=== PATIENT | male | born 1955 | race Caucasian/White ===

== ENCOUNTER 2017-05-19 17:23 | Emergency (ER) | payer OTHER ==
[~2017-05-19] VITALS: Ht 180.3 cm; Wt 83.9 kg
[2017-05-19 17:27] VITALS: BP_SYST 128
[2017-05-19 19:50] LABS: EOSINOPHILS % (AUTO) 0.1 % (0.0-4.0); LYMPHOCYTES # (AUTO) 0.8 K/uL (1.0-5.5)
[2017-05-19 19:55] LABS: LYMPHOCYTES % (AUTO) 9.3 % (20.5-51.5)
[2017-05-19 19:59] LABS: BASOPHILS # (AUTO) 0.1 K/uL (0.0-0.2); BASOPHILS % (AUTO) 1.3 % (0.0-2.0); HEMATOCRIT 43.8 % (36-54); MEAN CORPUSCULAR HEMOGLOBIN 27 pg (27-31); MEAN CORPUSCULAR HGB CONC 32 % (32-36); MEAN CORPUSCULAR VOLUME 86 fL (79.0-98.0); MONOCYTES # (AUTO) 0.8 K/uL (0.0-1.0); MONOCYTES % (AUTO) 9.4 % (1.7-9.3); NEUTROPHILS # (AUTO) 7.3 K/uL (1.8-7.7); NEUTROPHILS % (AUTO) 79.9 % (40.0-70.0); PLATELET COUNT (AUTO) 295 K/uL (130-430); RED BLOOD CELL COUNT(AUTO) 5.12 MIL/uL (4.2-6.2); RED CELL DISTRIBUTION WIDTH 13.2 % (9.0-15.0)
[2017-05-19 20:00] LABS: CALCIUM 9.4 mg/dL (8.4-11.0); CREATININE 1.46 mg/dL (0.55-1.30)
[2017-05-19 20:06] LABS: ALBUMIN 4.3 g/dL (3.4-4.8); TOTAL BILIRUBIN 0.4 mg/dL (0.0-1.0)
[2017-05-19 20:51] VITALS: BP_SYST 128
== END 2017-05-19 20:51 | disposition home or self-care (01) ==
LOC: SED 17:23
DX: Z00.00 Encounter for general adult medical examination without abnormal findings (principal); R40.4 Transient alteration of awareness
CPT/HCPCS: 36415; 80053; 80164-TC; 85025; 99284

== ENCOUNTER 2018-07-27 11:34 | Emergency (ER) | payer OTHER ==
[~2018-07-27] VITALS: Ht 180.3 cm; Wt 86.2 kg
[2018-07-27 11:34] VITALS: BP_SYST 127
--- NOTE | 2018-07-27 11:34 | NUR ---
patient arrived AOx4 from home with c/o SI thinking. patient states he has had SI and an unsuccessful suicide in the past. patient was last evaluated for SI thinking for weeks ago. patient states his 5 months ago from a heart attack, has no family, no friends and believes his life is over. patient has an suicide plan. patient plans to use scissors he has in his gym bag. patient stopped taking all therapeutic medication for major depression and bipolar disorder. no other complaint or injury at this time.
--- NOTE | 2018-07-27 11:34 | NUR ---
PT STATES HE IS NOW HOMELESS AFTER PASSING AWAY 6 MONTHS AGO, PT STATES HE HAS BEEN TRAVELING BETWEEN [place] AND [place], CAN NOT DECIDE WHERE TO MAKE HIS HOME. HAS ONE DAUGHTER AND ONE BROTHER, BOTH NO LONGER SPEAK WITH HIM. PT STATES HE IS SUICIDAL, HE STATES "THIS TIME I WILL SUCCEED". PT STATES HE IS A PATIENT OF DR ZUÑIGA AND HAS BEEN TO [facility] MANY TIMES.
--- NOTE | 2018-07-27 11:35 | NUR ---
ER at bedside examining patient.
[2018-07-27] MEDS ORDERED: QUET400T PO (11:58)
[2018-07-27] MEDS ORDERED: CYM30 PO (11:58)
[2018-07-27] MEDS ORDERED: TAMS-11 PO (12:01)
[2018-07-27] MEDS ORDERED: TEMA15CA5 PO (12:02)
[2018-07-27 12:19] LABS: BASOPHILS % (AUTO) 0.9 % (0.0-2.0); EOSINOPHILS # (AUTO) 0.1 K/uL (0.0-0.4); EOSINOPHILS % (AUTO) 2.7 % (0.0-4.0); HEMATOCRIT 42.5 % (36-54); HEMOGLOBIN 13.6 g/dL (14.0-18.0); LYMPHOCYTES # (AUTO) 1.4 K/uL (1.0-5.5); LYMPHOCYTES % (AUTO) 42.2 % (20.5-51.5); MEAN CORPUSCULAR HEMOGLOBIN 27 pg (27-31); MEAN CORPUSCULAR HGB CONC 32 % (32-36); MEAN CORPUSCULAR VOLUME 85 fL (79.0-98.0); MONOCYTES # (AUTO) 0.3 K/uL (0.0-1.0); MONOCYTES % (AUTO) 10.9 % (1.7-9.3); NEUTROPHILS # (AUTO) 1.3 K/uL (1.8-7.7); NEUTROPHILS % (AUTO) 43.3 % (40.0-70.0); PLATELET COUNT (AUTO) 183 K/uL (130-430); RED BLOOD CELL COUNT(AUTO) 5.01 MIL/uL (4.2-6.2); RED CELL DISTRIBUTION WIDTH 16.5 % (9.0-15.0); WHITE BLOOD COUNT (AUTO) 3.1 K/uL (4.8-10.8)
[2018-07-27 12:33] LABS: ANION GAP 10 (5-15); CALCIUM 8.8 mg/dL (8.4-11.0); CHLORIDE 104 mmol/L (98-107); CREATININE 1.15 mg/dL (0.55-1.30); GLUCOSE 109 mg/dL (70-99); POTASSIUM 4.2 mmol/L (3.5-5.1); SODIUM SERUM 142 mmol/L (136-145); UREA NITROGEN, BLOOD 17 mg/dL (8-21)
--- NOTE | 2018-07-27 12:33 | NUR ---
pt laying in bed, no signs of acute distress. Will continue to monitor
[2018-07-27 12:38] LABS: GFR AFRICAN AMERICAN 82 mL/min (>90)
[2018-07-27 12:46] LABS: ALANINE AMINOTRANSFERASE 32 U/L (12-78); ALBUMIN 3.4 g/dL (3.4-4.8); ASPARTATE AMINOTRANSFERASE 28 U/L (10-37); TOTAL BILIRUBIN 0.3 mg/dL (0.0-1.0)
--- NOTE | 2018-07-27 12:46 | NUR ---
pt laying in bed, no signs of acute distress. will continue to monitor.
[2018-07-27 12:50] LABS: ACETAMINOPHEN < 1 ug/mL (1-30); ALCOHOL, BLOOD < 3 mg/dL (<10)
--- NOTE | 2018-07-27 12:59 | NUR ---
pt laying in bed, no signs of acute distress. will continue to monitor.
--- NOTE | 2018-07-27 13:15 | NUR ---
pt laying in bed, no signs of acute distress. will continue to monitor
[2018-07-27 13:23] LABS: BILIRUBIN,URINE NEGATIVE (NEGATIVE); BLOOD, URINE NEGATIVE (NEGATIVE); CLARITY/URINE CLEAR (CLEAR); COLOR,URINE YELLOW (YELLOW); GLUCOSE,URINE NEGATIVE (NEGATIVE); KETONES,URINE TRACE (NEGATIVE); LEUKOCYTE ESTERASE ,URINE NEGATIVE (NEGATIVE); NITRITE, URINE NEGATIVE (NEGATIVE); PH,URINE 6.5 (5.0-8.0); PROTEIN URINE NEGATIVE (NEGATIVE); UROBILINOGEN,URINE 0.2 (0.2-1.0)
--- NOTE | 2018-07-27 13:28 | NUR ---
pt laying in bed, no signs of acute distress. will continue to monitor
--- NOTE | 2018-07-27 13:45 | NUR ---
pt laying in bed, no signs of acute distress. will continue to monitor
[2018-07-27 13:57] LABS: BENZODIAZEPINE, URINE POSITIVE (NEG <=150)
[2018-07-27 13:58] LABS: BARBITURATE, URINE NEGATIVE (NEG <=200); CANNABINOID, URINE NEGATIVE (NEG <=50); COCAINE, URINE NEGATIVE (NEG <=150); METHAMPHETAMINES SCREEN,URINE NEGATIVE (NEG <=500); OPIATE, URINE NEGATIVE (NEG <=100); PHENCYCLIDINE SCREEN,URINE NEGATIVE (NEG <=25); UR TRICYCLIC ANTIDEPRESSANTS POSITIVE (NEG <=300); URINE AMPHETAMINE NEGATIVE (NEG <=500); URINE METHADONE NEGATIVE (NEG <=200); URINE OXYCODONE SCREEN NEGATIVE (NEG <=100); URINE PROPOXYPHENE SCREEN NEGATIVE (NEG <=300)
--- NOTE | 2018-07-27 13:59 | NUR ---
pt laying in bed, no signs of acute distress. will continue to monitor
--- NOTE | 2018-07-27 14:00 | NUR ---
ER at bedside examining patient.
--- NOTE | 2018-07-27 14:12 | NUR ---
coffee given to pt at this time, no signs of distress.
--- NOTE | 2018-07-27 14:28 | NUR ---
pt laying in bed, no signs of acute distress. will continue to monitor.
--- NOTE | 2018-07-27 14:45 | NUR ---
pt laying in bed, no signs of acute distress. will continue to monitor
--- NOTE | 2018-07-27 15:00 | NUR ---
pt laying in bed, no signs of acute distress. will continue to monitor
--- NOTE | 2018-07-27 15:30 | NUR ---
pt laying in bed, no signs of acute distress. will continue to monitor
--- NOTE | 2018-07-27 15:45 | NUR ---
pt laying in bed, no signs of acute distress. will continue to monitor
--- NOTE | 2018-07-27 16:00 | NUR ---
safety tray provided. patient given a burger/fries. patient tolerating current diet.
--- NOTE | 2018-07-27 16:00 | NUR ---
pt laying in bed, no signs of acute distress. will continue to monitor
--- NOTE | 2018-07-27 16:15 | NUR ---
pt eating at this moment, no signs of distress. will continue to monitor
--- NOTE | 2018-07-27 16:30 | NUR ---
pt siting bed, no signs of acute distress. will continue to monitor
--- NOTE | 2018-07-27 16:45 | NUR ---
pt siting bed, no signs of acute distress. will continue to monitor
--- NOTE | 2018-07-27 17:03 | NUR ---
pt siting bed, no signs of acute distress. will continue to monitor
--- NOTE | 2018-07-27 17:15 | NUR ---
pt siting bed, no signs of acute distress. will continue to monitor
--- NOTE | 2018-07-27 18:15 | NUR ---
safety tray provided.
--- NOTE | 2018-07-27 18:16 | NUR ---
patient was eating and he is laying in the bed.
--- NOTE | 2018-07-27 18:32 | NUR ---
patient is laying in bed
--- NOTE | 2018-07-27 18:46 | NUR ---
patients is laying down
--- NOTE | 2018-07-27 18:56 | NUR ---
patient is laying down
--- NOTE | 2018-07-27 19:07 | NUR ---
patient is laying down about to go to sleep
--- NOTE | 2018-07-27 19:21 | NUR ---
Taking over care from dayshift. Pt v/s stable no s/s of acute distress. Resting on gurney, comfortable, with rails up. Sitter bedside. Awaiting placement
--- NOTE | 2018-07-27 19:30 | NUR ---
pt is resting in bed. no signs of distress. will continue to monitor.
--- NOTE | 2018-07-27 19:45 | NUR ---
pt is laying in bed. no signs of distress. will continue to monitor.
--- NOTE | 2018-07-27 20:00 | NUR ---
pt is sitting up in bed. no signs of distress. will continue to monitor.
--- NOTE | 2018-07-27 20:15 | NUR ---
pt is laying in bed. no signs of distress. will continue to monitor.
--- NOTE | 2018-07-27 20:30 | NUR ---
pt is laying in bed. no signs of distress. will continue to monitor.
--- NOTE | 2018-07-27 20:45 | NUR ---
pt is laying in bed. no signs of distress. will continue to monitor
--- NOTE | 2018-07-27 20:50 | NUR ---
Spoke with Dr. Randolph's regarding pt.'s status. Pt will be accepted to [facility] pending bed availability.
--- NOTE | 2018-07-27 20:55 | NUR ---
Dr. Randolph.'s calls to inform that [facility] has a bed and pt has been accepted. Pt report to be called to [phone].
--- NOTE | 2018-07-27 21:00 | NUR ---
pt is laying in bed. no signs of distress. will continue to monitor
--- NOTE | 2018-07-27 21:00 | NUR ---
S/W STAFF BY PHONE AT [facility] / PSYCH, THEY ARE STILL VERIFYING INS INFO. WILL RECEIVE REPORT IN APPROX 15 MIN
--- NOTE | 2018-07-27 21:15 | NUR ---
pt is laying in bed. no signs of distress. will continue to monitor
--- NOTE | 2018-07-27 21:24 | NUR ---
CARE has arrived to [facility] pt.
--- NOTE | 2018-07-27 21:31 | NUR ---
Gave report to transport team. Pt v/s stable no s/s of acute distress. Attempted 2nd time to give report to [facility] Psych / [facility] unit; was told no one available to take report. Just go ahead to send patient first and then [facility] will call for receiving report
[2018-07-27 21:40] VITALS: BP_SYST 137
--- NOTE | 2018-07-27 21:40 | NUR ---
[facility] be [facility]. Is being transferred due to appropriate level of care. Receiving facility has accepting physician and available space. ER physician has signed transfer form. Patient has agreed to transfer based on 5150. Patient belongings inventoried and will be sent with patient. Copy of nursing notes, lab reports, EKG, Physicians Orders and X-rays to be sent with patient. Attempted Report x 2 called to [facility]/Psych unit at receiving facility with no one able to take report x 2, was told by charge nurse to send pt, then they'll call for receiving report. Ambulance service has been called for transfer.
== END 2018-07-27 21:40 ==
LOC: SED 11:34
DX: R45.851 Suicidal ideations (principal); F32.9 Major depressive disorder, single episode, unspecified; Z79.899 Other long term (current) drug therapy
CPT/HCPCS: 36415; 71045; 80053; 80307; 81003; 85025; 93005; 99285; G0480; G0481; G0482

== ENCOUNTER 2019-04-11 03:20 | Emergency (ER) | payer OTHER ==
[~2019-04-11] VITALS: Ht 180.3 cm; Wt 95.3 kg
[~2019-04-11 03:20] MED LIST: CYM30 PO; QUET400T PO; TAMS-11 PO; TEMA15CA5 PO
[2019-04-11 03:25] VITALS: BP_SYST 131
--- NOTE | 2019-04-11 03:28 | NUR ---
Patient to ER bed 7 for evaluation. Side rails up.
--- NOTE | 2019-04-11 03:35 | NUR ---
Pt C/O generalized rash and itchiness x 2 months. States he saw his PMD and was given steroid pills with no relief. Denies any pain, SOB, N/V/D or any other symptoms at this time. Will continue to monitor.
--- NOTE | 2019-04-11 03:52 | NUR ---
ER Dr. Barragan at bedside examining patient.
--- NOTE | 2019-04-11 04:23 | NUR ---
Pt is resting in bed no acute distress noted at this time.
[2019-04-11 04:28] LABS: BASOPHILS # (AUTO) 0.1 K/uL (0.0-0.2); BASOPHILS % (AUTO) 0.9 % (0.0-2.0); EOSINOPHILS # (AUTO) 0.1 K/uL (0.0-0.4); EOSINOPHILS % (AUTO) 1.8 % (0.0-4.0); HEMATOCRIT 38.1 % (36-54); HEMOGLOBIN 12.6 g/dL (14.0-18.0); LYMPHOCYTES # (AUTO) 2.7 K/uL (1.0-5.5); MEAN CORPUSCULAR HEMOGLOBIN 29 pg (27-31); MEAN CORPUSCULAR HGB CONC 33 % (32-36); MEAN CORPUSCULAR VOLUME 87 fL (79.0-98.0); MONOCYTES # (AUTO) 0.6 K/uL (0.0-1.0); MONOCYTES % (AUTO) 10.1 % (1.7-9.3); NEUTROPHILS # (AUTO) 2.8 K/uL (1.8-7.7); NEUTROPHILS % (AUTO) 44.2 % (40.0-70.0); PLATELET COUNT (AUTO) 265 K/uL (130-430); RED BLOOD CELL COUNT(AUTO) 4.38 MIL/uL (4.2-6.2); RED CELL DISTRIBUTION WIDTH 14.4 % (9.0-15.0); WHITE BLOOD COUNT (AUTO) 6.3 K/uL (4.8-10.8)
[2019-04-11 04:42] LABS: CALCIUM 8.1 mg/dL (8.4-11.0); CREATININE 1.04 mg/dL (0.55-1.30); POTASSIUM 3.9 mmol/L (3.5-5.1)
[2019-04-11 04:47] LABS: ALBUMIN 3.2 g/dL (3.4-4.8); TOTAL BILIRUBIN 0.2 mg/dL (0.0-1.0)
[2019-04-11 04:52] LABS: BILIRUBIN,URINE NEGATIVE (NEGATIVE); CLARITY/URINE CLEAR (CLEAR); COLOR,URINE YELLOW (YELLOW); GLUCOSE,URINE NEGATIVE (NEGATIVE); KETONES,URINE NEGATIVE (NEGATIVE); LEUKOCYTE ESTERASE ,URINE NEGATIVE (NEGATIVE); NITRITE, URINE NEGATIVE (NEGATIVE); PROTEIN URINE NEGATIVE (NEGATIVE); UROBILINOGEN,URINE 0.2 (0.2-1.0)
[2019-04-11 04:53] LABS: BLOOD, URINE TRACE (NEGATIVE)
[2019-04-11 04:57] LABS: BACTERIA,URINE FEW /HPF (None Seen); WBC,URINE 0-3 /HPF (0-3)
[2019-04-11 05:27] VITALS: BP_SYST 128
--- NOTE | 2019-04-11 05:28 | NUR ---
Patient given written and verbal discharge instructions and verbalizes understanding. ER MD discussed with patient the results and treatment provided. Patient in stable condition. ID arm band removed. Rx of Atarax given. Patient educated on pain management and to follow up with PMD. Pain Scale 0. Opportunity for questions provided and answered. Medication side effect fact sheet provided.
== END 2019-04-11 05:28 | disposition home or self-care (01) ==
LOC: SED 03:20
DX: L29.9 Pruritus, unspecified (principal); Z79.899 Other long term (current) drug therapy
CPT/HCPCS: 36415; 80053; 81000-TC; 85025; 99283

== ENCOUNTER 2019-05-30 11:20 | Emergency (ER) | payer OTHER, MEDICAID ==
[~2019-05-30] VITALS: Ht 188 cm; Wt 74.8 kg
[2019-05-30 11:20] VITALS: BP_SYST 126
--- NOTE | 2019-05-30 11:20 | NUR ---
Patient brought in w/ ALOC, sleepy, and weak. Patient able to communicate but is confused. Patient able to answer questions. Per report, patient was wondering around a motel [facility] attempting to "break in" cars. Patient stable upon arrival to ED and is in no signs of distress. Patient does not complain of pain @ this time.
--- NOTE | 2019-05-30 12:15 | NUR ---
Dr. Mota Addendum: 05/30/[address] Schmid @ [facility] for examination.
[2019-05-30] MEDS ORDERED: NACL 0.9% 1,000 ML IV ONE (12:30)
--- NOTE | 2019-05-30 12:42 | NUR ---
Patient transported to radiology via gurney, accompanied by graduate assistant.
[2019-05-30 12:47] LABS: BASOPHILS % (AUTO) 0.6 % (0.0-2.0); EOSINOPHILS # (AUTO) 0.1 K/uL (0.0-0.4); EOSINOPHILS % (AUTO) 1.7 % (0.0-4.0); HEMATOCRIT 40.1 % (36-54); HEMOGLOBIN 13.2 g/dL (14.0-18.0); LYMPHOCYTES # (AUTO) 1.4 K/uL (1.0-5.5); LYMPHOCYTES % (AUTO) 35.3 % (20.5-51.5); MEAN CORPUSCULAR HEMOGLOBIN 28 pg (27-31); MEAN CORPUSCULAR HGB CONC 33 % (32-36); MEAN CORPUSCULAR VOLUME 85 fL (79.0-98.0); MONOCYTES # (AUTO) 0.3 K/uL (0.0-1.0); MONOCYTES % (AUTO) 8.3 % (1.7-9.3); NEUTROPHILS # (AUTO) 2.2 K/uL (1.8-7.7); NEUTROPHILS % (AUTO) 54.1 % (40.0-70.0); PLATELET COUNT (AUTO) 216 K/uL (130-430); RED BLOOD CELL COUNT(AUTO) 4.71 MIL/uL (4.2-6.2); RED CELL DISTRIBUTION WIDTH 14.2 % (9.0-15.0); WHITE BLOOD COUNT (AUTO) 4.1 K/uL (4.8-10.8)
[2019-05-30 12:59] LABS: CALCIUM 9.5 mg/dL (8.4-11.0); CREATININE 1.01 mg/dL (0.55-1.30); POTASSIUM 3.8 mmol/L (3.5-5.1)
[2019-05-30 13:02] LABS: PROTHROMBIN TIME 9.6 SECS (9.5-12.5)
[2019-05-30 13:04] LABS: ALBUMIN 4.1 g/dL (3.4-4.8); TOTAL BILIRUBIN 0.1 mg/dL (0.0-1.0)
[2019-05-30 13:36] LABS: BILIRUBIN,URINE NEGATIVE (NEGATIVE); BLOOD, URINE NEGATIVE (NEGATIVE); CLARITY/URINE CLEAR (CLEAR); COLOR,URINE YELLOW (YELLOW); GLUCOSE,URINE NEGATIVE (NEGATIVE); KETONES,URINE NEGATIVE (NEGATIVE); LEUKOCYTE ESTERASE ,URINE NEGATIVE (NEGATIVE); NITRITE, URINE NEGATIVE (NEGATIVE); PROTEIN URINE NEGATIVE (NEGATIVE); UROBILINOGEN,URINE 0.2 (0.2-1.0)
[2019-05-30 13:38] LABS: ACETAMINOPHEN < 1 ug/mL (1-30); ALCOHOL, BLOOD < 3 mg/dL (<10)
[2019-05-30 13:44] LABS: BARBITURATE, URINE NEGATIVE (NEG <=200); BENZODIAZEPINE, URINE POSITIVE (NEG <=150); CANNABINOID, URINE NEGATIVE (NEG <=50); COCAINE, URINE NEGATIVE (NEG <=150); METHAMPHETAMINES SCREEN,URINE NEGATIVE (NEG <=500); URINE AMPHETAMINE NEGATIVE (NEG <=500); URINE METHADONE NEGATIVE (NEG <=200)
[2019-05-30 13:45] LABS: OPIATE, URINE NEGATIVE (NEG <=100); PHENCYCLIDINE SCREEN,URINE NEGATIVE (NEG <=25); UR TRICYCLIC ANTIDEPRESSANTS POSITIVE (NEG <=300); URINE OXYCODONE SCREEN NEGATIVE (NEG <=100); URINE PROPOXYPHENE SCREEN NEGATIVE (NEG <=300)
--- NOTE | 2019-05-30 14:55 | NUR ---
Patient removed peripheral IV line. Patient remains confused @ this time.
[2019-05-30 15:38] VITALS: BP_SYST 122
== END 2019-05-30 15:27 | disposition left against medical advice (07) ==
LOC: SED 11:20
DX: R41.82 Altered mental status, unspecified (principal); Z79.899 Other long term (current) drug therapy
CPT/HCPCS: 36415; 70450; 71045; 80053; 80307; 81003; 83605; 84484; 85025; 85610; 85730; 87040; 87086; 93005; 96360; 99284; G0480; G0481; G0482; J7030

== ENCOUNTER 2019-06-12 15:06 | Emergency (ER) | payer OTHER, MEDICAID ==
[~2019-06-12] VITALS: Ht 180.3 cm; Wt 93.0 kg
[2019-06-12 16:03] VITALS: BP_SYST 144
[2019-06-12 16:49] LABS: BASOPHILS % (AUTO) 0.7 % (0.0-2.0); EOSINOPHILS % (AUTO) 0.6 % (0.0-4.0); HEMATOCRIT 42.9 % (36-54); HEMOGLOBIN 14.3 g/dL (14.0-18.0); LYMPHOCYTES # (AUTO) 1.8 K/uL (1.0-5.5); LYMPHOCYTES % (AUTO) 28.4 % (20.5-51.5); MEAN CORPUSCULAR HEMOGLOBIN 28 pg (27-31); MEAN CORPUSCULAR HGB CONC 33 % (32-36); MEAN CORPUSCULAR VOLUME 85 fL (79.0-98.0); MONOCYTES # (AUTO) 0.4 K/uL (0.0-1.0); MONOCYTES % (AUTO) 5.9 % (1.7-9.3); NEUTROPHILS % (AUTO) 64.4 % (40.0-70.0); PLATELET COUNT (AUTO) 281 K/uL (130-430); RED BLOOD CELL COUNT(AUTO) 5.08 MIL/uL (4.2-6.2); WHITE BLOOD COUNT (AUTO) 6.3 K/uL (4.8-10.8)
[2019-06-12 17:01] LABS: ANION GAP 6 (5-15); CALCIUM 9.6 mg/dL (8.4-11.0); CHLORIDE 99 mmol/L (98-107); CREATININE 1.02 mg/dL (0.55-1.30); GFR AFRICAN AMERICAN 95 mL/min (>90); GLUCOSE 92 mg/dL (70-99); POTASSIUM 4.2 mmol/L (3.5-5.1); SODIUM SERUM 134 mmol/L (136-145); UREA NITROGEN, BLOOD 15 mg/dL (8-21)
[2019-06-12 17:16] LABS: ACETAMINOPHEN < 1 ug/mL (1-30); ALANINE AMINOTRANSFERASE 29 U/L (12-78); ALBUMIN 4.5 g/dL (3.4-4.8); ALCOHOL, BLOOD < 3 mg/dL (<10); ASPARTATE AMINOTRANSFERASE 18 U/L (10-37); FREE T4 (FREE THYROXINE) 0.8 ng/dl (0.8-1.5); THYROID STIMULATING HORMONE 1.39 uIu/mL (0.36-3.74); TOTAL BILIRUBIN 0.4 mg/dL (0.0-1.0)
[2019-06-12 17:49] LABS: BILIRUBIN,URINE NEGATIVE (NEGATIVE); BLOOD, URINE 1+ (NEGATIVE); CLARITY/URINE CLEAR (CLEAR); COLOR,URINE YELLOW (YELLOW); GLUCOSE,URINE NEGATIVE (NEGATIVE); KETONES,URINE NEGATIVE (NEGATIVE); LEUKOCYTE ESTERASE ,URINE NEGATIVE (NEGATIVE); NITRITE, URINE NEGATIVE (NEGATIVE); PH,URINE 6.5 (5.0-8.0); PROTEIN URINE NEGATIVE (NEGATIVE); UROBILINOGEN,URINE 0.2 (0.2-1.0)
[2019-06-12 18:13] LABS: BARBITURATE, URINE NEGATIVE (NEG <=200); BENZODIAZEPINE, URINE NEGATIVE (NEG <=150); CANNABINOID, URINE NEGATIVE (NEG <=50); COCAINE, URINE NEGATIVE (NEG <=150); METHAMPHETAMINES SCREEN,URINE NEGATIVE (NEG <=500); OPIATE, URINE NEGATIVE (NEG <=100); PHENCYCLIDINE SCREEN,URINE NEGATIVE (NEG <=25); URINE AMPHETAMINE POSITIVE (NEG <=500); URINE METHADONE NEGATIVE (NEG <=200); URINE OXYCODONE SCREEN NEGATIVE (NEG <=100)
[2019-06-12 18:14] LABS: UR TRICYCLIC ANTIDEPRESSANTS POSITIVE (NEG <=300); URINE PROPOXYPHENE SCREEN NEGATIVE (NEG <=300)
[2019-06-12 18:21] LABS: BACTERIA,URINE FEW /HPF (None Seen); MUCUS,URINE None Seen /LPF (None Seen); WBC,URINE 0-3 /HPF (0-3)
[2019-06-12 20:35] VITALS: BP_SYST 109
[2019-06-13 13:48] LABS: CHOLESTEROL 355 mg/dL (<200); HDL CHOLESTEROL 54 mg/dL (>45); LDL CHOLESTEROL 258 mg/dL (<100); TRIGLYCERIDES 180 mg/dL (30-150)
== END 2019-06-12 20:35 | disposition designated cancer center or children's hospital (05) ==
LOC: SED 15:06
DX: F41.9 Anxiety disorder, unspecified (principal); F32.9 Major depressive disorder, single episode, unspecified; F90.9 Attention-deficit hyperactivity disorder, unspecified type; Z79.899 Other long term (current) drug therapy
CPT/HCPCS: 36415; 80053; 80061; 80307; 81000; 82550; 83036; 84439; 84443; 85025; 87081; 93005; 99284; G0480; G0481; G0482

== ENCOUNTER 2022-05-04 19:48 | Emergency (ER) | payer MEDICAID, OTHER ==
[~2022-05-04] VITALS: Ht 180.3 cm; Wt 54.4 kg
[2022-05-04 20:00] VITALS: BP_SYST 117
[2022-05-04 21:28] LABS: BASOPHILS # (AUTO) 0.1 K/uL (0.0-0.2); BASOPHILS % (AUTO) 0.5 % (0.0-2.0); EOSINOPHILS % (AUTO) 0.2 % (0.0-4.0); HEMATOCRIT 30.6 % (36-54); HEMOGLOBIN 10.6 g/dL (14.0-18.0); LYMPHOCYTES # (AUTO) 1.9 K/uL (1.0-5.5); LYMPHOCYTES % (AUTO) 19.1 % (20.5-51.5); MEAN CORPUSCULAR HEMOGLOBIN 30 pg (27-31); MEAN CORPUSCULAR HGB CONC 35 % (32-36); MEAN CORPUSCULAR VOLUME 87 fL (79.0-98.0); MONOCYTES # (AUTO) 1.1 K/uL (0.0-1.0); MONOCYTES % (AUTO) 11.7 % (1.7-9.3); NEUTROPHILS # (AUTO) 6.7 K/uL (1.8-7.7); NEUTROPHILS % (AUTO) 68.5 % (40.0-70.0); PLATELET COUNT (AUTO) 278 K/uL (130-430); RED BLOOD CELL COUNT(AUTO) 3.53 MIL/uL (4.2-6.2); RED CELL DISTRIBUTION WIDTH 12.9 % (9.0-15.0); WHITE BLOOD COUNT (AUTO) 9.8 K/uL (4.8-10.8)
[2022-05-04 21:43] LABS: CALCIUM 8.3 mg/dL (8.4-11.0); CREATININE 0.71 mg/dL (0.55-1.30)
[2022-05-04 21:49] LABS: ALBUMIN 3.2 g/dL (3.4-4.8); TOTAL BILIRUBIN 0.7 mg/dL (0.0-1.0)
[2022-05-04 23:15] LABS: BILIRUBIN,URINE NEGATIVE (NEGATIVE); BLOOD, URINE NEGATIVE (NEGATIVE); CLARITY/URINE CLEAR (CLEAR); COLOR,URINE YELLOW (YELLOW); GLUCOSE,URINE NEGATIVE (NEGATIVE); KETONES,URINE 2+ (NEGATIVE); LEUKOCYTE ESTERASE ,URINE NEGATIVE (NEGATIVE); NITRITE, URINE NEGATIVE (NEGATIVE); PROTEIN URINE NEGATIVE (NEGATIVE); UROBILINOGEN,URINE 0.2 (0.2-1.0)
[2022-05-04 23:22] LABS: ACETAMINOPHEN < 1 ug/mL (1-30); ALCOHOL, BLOOD < 3 mg/dL (<10)
[2022-05-04 23:28] LABS: BARBITURATE, URINE NEGATIVE (NEG <=200); BENZODIAZEPINE, URINE NEGATIVE (NEG <=150); CANNABINOID, URINE NEGATIVE (NEG <=50); COCAINE, URINE NEGATIVE (NEG <=150); METHAMPHETAMINES SCREEN,URINE NEGATIVE (NEG <=500); OPIATE, URINE NEGATIVE (NEG <=100); PHENCYCLIDINE SCREEN,URINE NEGATIVE (NEG <=25); UR TRICYCLIC ANTIDEPRESSANTS NEGATIVE (NEG <=300); URINE AMPHETAMINE NEGATIVE (NEG <=500); URINE METHADONE NEGATIVE (NEG <=200); URINE OXYCODONE SCREEN NEGATIVE (NEG <=100); URINE PROPOXYPHENE SCREEN NEGATIVE (NEG <=300)
--- NOTE | 2022-05-04 23:45 | NUR ---
pt is belonging is removed. he has pant, shoes, shirt , hat, luggage and back pack.
--- NOTE | 2022-05-04 23:55 | NUR ---
pt came feeling depress, alert and oriented x4. He is homeless. ambulatory, cooperative.
[2022-05-05] MEDS ORDERED: LORazepam 2 MG/ML VIAL IM ONE (02:00)
[2022-05-05] MEDS ORDERED: HALOPERIDOL LACTATE 5 MG/ML VIAL IM ONE (02:15)
--- NOTE | 2022-05-05 03:11 | NUR ---
PT GIVEN SOME WATER REQUESTED. PT NOW RESTING IN BED. SAFETY PRECAUTIONS IN PLACE.
--- NOTE | 2022-05-05 03:28 | NUR ---
PT GIVEN URINAL TO USE AT BEDSIDE. PT NOW BACK IN BED. SAFETY PRECAUTIONS IN PLACE.
--- NOTE | 2022-05-05 04:00 | NUR ---
pt at the side of the bed, nurse educate the patient for fall precaution. Pt followed command and cooperative
--- NOTE | 2022-05-05 07:30 | NUR ---
RECEIVED PT FROM JACQUES WATTS. PT IS HERE FOR ANXIETY AND VERBALIZING SUICIDAL IDEATION. POC IS FOR PT TO HAVE PSYCH EVAL AND POSSIBLE PLACEMENT. PT IS AAOX4. RESP E/U. ON R/A. NORMAL S1S2 NOTED. DENIES N/V/D/C. SKIN WARM, CDI, NO EDEMA. PERIPHERAL PULSES NORMAL. DENIES PAIN. SIDERAILS UP X2.
--- NOTE | 2022-05-05 07:55 | NUR ---
DR. MIRAMONTES MET WITH AND ASSESSED PT. PT PLACED ON [address] MIRAMONTES STATED TO HAVE [employer] CONSULTANT CONTACT THE PT'S INSURANCE TO CONFIRM PLACEMENT. PT MADE AWARE.
--- NOTE | 2022-05-05 08:30 | NUR ---
Frances socialworker made aware pt needs insurance contacted for psych placement.
--- NOTE | 2022-05-05 08:45 | NUR ---
INFORMATICS EDUCATOR ACSW Juli responded to a request for Base Manager support from ED [employer]zen [employer] Department Manager Jhon with obtaining inpatient psych for patient ACSW spoke with Dr. Nettles who stated he has placed patient on a 5150 hold and he will need geropsych due to patient's age. ACSW faxed packets to the following; - [facility] P: - [facility] : Addendum: 05/05/22 at 4132 by Juli Eugene LOIN TRIMMER ACSW obtained following updates - [facility]- No beds - [facility]- no beds ACSW also faxed packet to [facility] ACS provided update to ED staff
--- NOTE | 2022-05-05 14:40 | NUR ---
PT SLEEPING THROUGH OUT THE DAY. PT ENCOURAGED TO EAT LUNCH BUT REFUSED. VSS.
--- NOTE | 2022-05-05 15:54 | NUR ---
ENDORSED PT TO JACQUES MONK. ALL QUESTIONS AND CONCERNS ADDRESSED.
--- NOTE | 2022-05-05 19:30 | NUR ---
PT AMBULATED TO [facility]
--- NOTE | 2022-05-05 21:31 | NUR ---
SYSTEM ERROR WHEN DOCUMENTING QSHIFT SI SCALE. SYSTEM SHUTS DOWN.
--- NOTE | 2022-05-05 22:21 | NUR ---
Pt's packet faxed to the following LPS facilites for placement: [facility] Awaiting reply regarding placment.
--- NOTE | 2022-05-05 22:28 | NUR ---
Patient resting quietly. No acute distress noted. Vital signs within normal range.
--- NOTE | 2022-05-06 00:06 | NUR ---
Patient resting quietly. No acute distress noted. Vital signs within normal range.
--- NOTE | 2022-05-06 02:15 | NUR ---
PT AMBULATED TO [facility].
--- NOTE | 2022-05-06 04:40 | NUR ---
Patient resting quietly. No acute distress noted. Vital signs within normal range.
--- NOTE | 2022-05-06 05:30 | NUR ---
PT MADE AWARE HE WILL BE TRANSFERED TO [facility]. BLS ETA [id number].
--- NOTE | 2022-05-06 08:34 | NUR ---
Patient going to [facility]. Ambulance here to take patient.
[2022-05-06 09:01] VITALS: BP_SYST 124
--- NOTE | 2022-05-06 09:03 | NUR ---
Report given to [facility]. No distress noted on patient. Patient ambulatory with steady gait to [facility]. Belongings with patient.
== END 2022-05-06 09:03 | disposition short-term general hospital (02) ==
LOC: SED 19:48
DX: R45.851 Suicidal ideations (principal); Z79.899 Other long term (current) drug therapy; Z20.822 Contact with and (suspected) exposure to COVID-19
CPT/HCPCS: 99285; 87426; 80307; 80053; 85025; 36415; 93005; 81003; 96374; 96372; G0482; J1630; J2060; G0480; G0481